=== PATIENT | male | born 1980 | race African-American/Black ===

== ENCOUNTER 2021-07-16 11:53 | Emergency (ER) | payer SELFPAY ==
[~2021-07-16] VITALS: Ht 172.7 cm; Wt 122.7 kg
[2021-07-16 12:39] LABS: COVID AG,FIA SOURCE NASOPHARYNGEAL
[2021-07-16 14:01] VITALS: BP 114/76
== END 2021-07-16 14:33 | disposition home or self-care (01) ==
LOC: EMS 11:54
DX: U07.1 COVID-19 (principal); J45.909 Unspecified asthma, uncomplicated
CPT/HCPCS: 71045; 87426; 99284; U0003

== ENCOUNTER 2021-07-28 08:48 | Emergency (ER) | payer SELFPAY ==
[~2021-07-28] VITALS: Ht 172.7 cm; Wt 130.4 kg
[2021-07-28 08:52] VITALS: BP 120/74
[2021-07-28 10:37] LABS: COVID AG,FIA SOURCE NASOPHARYNGEAL
== END 2021-07-28 10:09 | disposition home or self-care (01) ==
LOC: EMS 08:54
DX: Z20.822 Contact with and (suspected) exposure to COVID-19 (principal)
CPT/HCPCS: 87426; 99283; C9803

== ENCOUNTER 2024-06-20 00:15 | Emergency (ER) | payer MEDICAID, OTHER ==
[~2024-06-20] VITALS: Ht 172.7 cm; Wt 154.6 kg
[2024-06-20 01:00] LABS: BASOPHILS % (AUTO) 1.4 % (0.0-2.0); EOSINOPHILS % (AUTO) 2.2 % (1.0-6.0); HEMATOCRIT 45.4 % (41-53); HEMOGLOBIN 14.7 g/dL (13.5-17.5); LYMPHOCYTES # (AUTO) 2.1 K/uL (1.0-4.8); LYMPHOCYTES % (AUTO) 23.4 % (22.0-44.0); MEAN CORPUSCULAR HEMOGLOBIN 27.7 pg (26.0-34.0); MEAN CORPUSCULAR HGB CONC 32.5 G/dL (31.0-37.0); MEAN CORPUSCULAR VOLUME 85 fL (80-100); MONOCYTES # (AUTO) 0.8 K/uL (0.1-1.0); MONOCYTES % (AUTO) 8.8 % (2.0-9.0); NEUTROPHILS # (AUTO) 5.6 K/uL (1.8-7.7); NEUTROPHILS % (AUTO) 64.2 % (40.0-70.0); PLATELET COUNT (AUTO) 297 K/uL (150-450); RED BLOOD CELL COUNT(AUTO) 5.32 MIL/uL (4.50-5.90); RED CELL DISTRIBUTION WIDTH 14.1 % (11.5-14.5); WHITE BLOOD COUNT (AUTO) 8.7 K/uL (4.5-11.0)
[2024-06-20 01:09] LABS: ANION GAP 9 mmol/L (8-16); CALCIUM, TOTAL 8.7 mg/dL (8.8-10.5); CARBON DIOXIDE 24 mmol/L (22-29); CHLORIDE 103 mmol/L (98-107); CREATININE 1.26 mg/dL (0.60-1.30); GLOMERULAR FILTR. RATE CALC > 60 mL/min (>60); GLUCOSE,RANDOM 166 mg/dL (70-110); POTASSIUM 4.4 mmol/L (3.5-5.1); SODIUM SERUM 136 mmol/L (136-145); UREA NITROGEN, BLOOD 15 mg/dL (7-18)
[2024-06-20 01:16] LABS: TROPONIN I-HIGH SENSITIVITY 4 ng/L (<76)
[2024-06-20 01:26] LABS: B-TYPE NATRIURETIC PEPTIDE < 5 pg/mL (0-100)
[2024-06-20 01:55] LABS: COVID AG,FIA SOURCE NASAL SWAB
[2024-06-20 02:15] LABS: SARS-COV2 (COVID) ANTIGEN,FIA Negative (Negative)
[2024-06-20 02:37] VITALS: BP 141/80; PULSE 90; RESP 20; TEMP 98.3
== END 2024-06-20 03:29 | disposition home or self-care (01) ==
LOC: EMS 00:16
DX: J06.9 Acute upper respiratory infection, unspecified (principal); J45.909 Unspecified asthma, uncomplicated; Z20.822 Contact with and (suspected) exposure to COVID-19
CPT/HCPCS: 71045; 80048; 83880; 84484; 85025; 93005; 99285; 36415-L1; 36415-TC

== ENCOUNTER 2024-07-07 19:42 | Emergency (ER) | payer MEDICAID ==
[~2024-07-07] VITALS: Ht 172.7 cm; Wt 157.7 kg
[2024-07-07 19:45] VITALS: TEMP 98
[2024-07-07 20:29] LABS: BASOPHILS % (AUTO) 1.6 % (0.0-2.0); EOSINOPHILS % (AUTO) 1.8 % (1.0-6.0); LYMPHOCYTES # (AUTO) 2.4 K/uL (1.0-4.8); LYMPHOCYTES % (AUTO) 24.6 % (22.0-44.0); MEAN CORPUSCULAR HEMOGLOBIN 27.4 pg (26.0-34.0); MEAN CORPUSCULAR HGB CONC 32.6 G/dL (31.0-37.0); MEAN CORPUSCULAR VOLUME 84 fL (80-100); MONOCYTES # (AUTO) 0.9 K/uL (0.1-1.0); MONOCYTES % (AUTO) 9.7 % (2.0-9.0); NEUTROPHILS # (AUTO) 6.1 K/uL (1.8-7.7); NEUTROPHILS % (AUTO) 62.3 % (40.0-70.0); PLATELET COUNT (AUTO) 311 K/uL (150-450); RED BLOOD CELL COUNT(AUTO) 5.48 MIL/uL (4.50-5.90); RED CELL DISTRIBUTION WIDTH 14.6 % (11.5-14.5); WHITE BLOOD COUNT (AUTO) 9.7 K/uL (4.5-11.0)
[2024-07-07 20:37] LABS: ANION GAP 13 mmol/L (8-16); CALCIUM, TOTAL 8.8 mg/dL (8.8-10.5); CARBON DIOXIDE 22 mmol/L (22-29); CHLORIDE 101 mmol/L (98-107); CREATININE 1.42 mg/dL (0.60-1.30); GLOMERULAR FILTR. RATE CALC > 60 mL/min (>60); GLUCOSE,RANDOM 178 mg/dL (70-110); POTASSIUM 3.5 mmol/L (3.5-5.1); SODIUM SERUM 136 mmol/L (136-145); UREA NITROGEN, BLOOD 14 mg/dL (7-18)
[2024-07-07 20:47] LABS: TROPONIN I-HIGH SENSITIVITY 5 ng/L (<76)
[2024-07-07 21:14] VITALS: BP 111/66
[2024-07-07 22:17] VITALS: PULSE 98; RESP 18; O2SAT 95
[2024-07-07] MEDS: IPRATROPIUM BROMIDE 0.5 MG/2.5 ML NEB SOLUTION NEB ONE ×2 (22:17→22:22)
[2024-07-07] MEDS: ALBUTEROL SULFATE 2.5 MG/0.5 ML NEB SOLUTION NEB ONE ×2 (22:17→22:22)
[2024-07-07 22:32] VITALS: PULSE 100; RESP 18; O2SAT 97
[2024-07-07 23:24] LABS: TROPONIN I-HIGH SENSITIVITY 5 ng/L (<76)
== END 2024-07-08 02:14 | disposition home or self-care (01) ==
LOC: EMS 19:42
DX: R07.89 Other chest pain (principal); J45.909 Unspecified asthma, uncomplicated
CPT/HCPCS: 71045; 80048; 83880; 84484; 85025; 85379; 93005; 94640; 99285; 36415-L1; 36415-TC; J7613